=== PATIENT | female | born 1945 ===

== ENCOUNTER 2021-05-16 11:16 | Inpatient (IN) | payer MEDICARE, MEDICAID ==
[~2021-05-16] VITALS: Ht 160 cm; Wt 50.4 kg
[2021-05-16 12:13] LABS: Eosinophils # (auto) 0 10 ^3/uL (0-0.8); Monocytes # (auto) 0.3 10 ^3/uL (0-1.3)
[2021-05-16 12:15] LABS: Basophils # (auto) 0.2 10 ^3/uL (0-0.2); Basophils % (auto) 2.7 % (0.0-2.0); Eosinophils % (auto) 0.1 % (0.0-7.0); Hematocrit 55.6 % (36.0-46.0); Hemoglobin 18.3 g/dL (12.2-16.2); Lymphocytes # (auto) 0.4 10 ^3/uL (0.4-5.4); Lymphocytes % (auto) 6.9 % (10.0-50.0); Mean Corpuscular Hemoglobin 32.8 pg (28.0-32.0); Mean Corpuscular Hgb Conc. 32.9 g/dL (32.0-36.0); Mean Corpuscular Volume 99.5 fL (80.0-100.0); Monocytes % (auto) 5.1 % (0.0-12.0); Neutrophils # (auto) 5.1 10 ^3/uL (1.6-8.6); Neutrophils % (auto) 85.2 % (37.0-80.0); Nucleated Red Blood Cells % 0.3 %; Red Blood Cells 5.59 10^6/uL (4.0-5.20); Red Cell Distribution Width 15.8 % (11.8-14.3)
[2021-05-16 12:23] LABS: Albumin 3.1 g/dL (3.4-5.0); Calcium 9.9 mg/dL (8.5-10.1); Magnesium 3.2 mg/dL (1.6-2.6); Potassium 4.5 mmol/L (3.5-5.1)
[2021-05-16 12:29] LABS: BUN/Creatinine Ratio 28.4; Bilirubin, Total 1.8 mg/dL (0.2-1.0); Total Protein 6.8 g/dL (6.4-8.2)
[2021-05-16] MEDS ORDERED: VANCOMYCIN 1GM/250ML 250 ML IV ONE (12:30)
[2021-05-16] MEDS ORDERED: CEFEPIME 1 GM in SODIUM CHL 0.9% 50 ML IV ONE (12:30)
[2021-05-16] MEDS ORDERED: ASPirin 325 MG TAB PO ONE (12:45)
[2021-05-16 13:24] LABS: INR 1.3 (0.9-1.15); Partial Thromboplastin Time 27.7 sec (23.6-33.0)
[2021-05-16] MEDS ORDERED: NITROGLYCERIN 0.4 MG SL TAB SL PRN (13:45)
[2021-05-16] MEDS ORDERED: MORPHINE SULFATE INJECTION 2 MG/ML SYRG IV PRN ×2 (13:45→15:15)
[2021-05-16 14:10] LABS: Lactic Acid w/Reflex 5.7 mmol/L (0.4-2.0)
[2021-05-16] MEDS ORDERED: IOHEXOL 350 MG/ML 100ML IJ ONE (14:22)
[2021-05-16] MEDS ORDERED: IPRATROPIUM BROM 0.5 MG/2.5ML INH SOL NEB ONE (15:15)
[2021-05-16] MEDS ORDERED: FAMOTIDINE (10MG/ML) 2ML VL IV ONE (15:15)
[2021-05-16] MEDS ORDERED: LORazepam 0.5 MG TAB PO PRN (15:15)
[2021-05-16] MEDS ORDERED: ONDANSETRON HCL 4 MG/2 ML VIAL IV PRN (15:15)
[2021-05-16] MEDS ORDERED: HEPARIN SODIUM (PORCINE) 5000 UNITS/ML 1ML VIAL IV ONE (16:15)
[2021-05-16] MEDS ORDERED: VANCOMYCIN PER PHARMACY 0 MG IV SCH (16:15)
[2021-05-16] MEDS: HEPARIN DRIP/D5W 100UNITS/ML 250 ML IV SCH (16:15)
[2021-05-16] MEDS ORDERED: BUMETANIDE 2.5mg/10ml (0.25 mg/ml) INJ IV ONE (16:15)
[2021-05-16] MEDS ORDERED: ALBUMIN 25% 100 ML IV ONE (16:15)
[2021-05-16] MEDS ORDERED: METOPROLOL SUCCINATE XL 50 MG TAB PO ONE (16:30)
[2021-05-16] MEDS ORDERED: ATORVASTATIN 20 MG TAB PO ONE (16:30)
[2021-05-16] MEDS: ACCU-CHEK COMFORT CURVE STRIP VI SCH ×2 (17:00→22:22)
[2021-05-16] MEDS: InsuLIN REG 1unit/0.01ml Soln (100units/ml) SC SCH ×2 (17:00→22:00)
[2021-05-16 17:18] LABS: Magnesium 2.7 mg/dL (1.6-2.6); Phosphorus 3.5 mg/dL (2.5-4.90)
[2021-05-16] MEDS ORDERED: BUMETANIDE 2.5mg/10ml (0.25 mg/ml) INJ IV SCH (18:00)
[2021-05-16] MEDS: IPRATROPIUM BROM 0.5 MG/2.5ML INH SOL NEB SCH ×2 (18:28→23:39)
[2021-05-16] MEDS: DOBUTamine 1000MCG/ML 250 ML IV SCH (18:51)
[2021-05-16] MEDS: FUROSEMIDE 20 MG/2 ML VIAL IV SCH (18:52)
[2021-05-16 19:12] LABS: Urine Bacteria NONE SEEN /hpf (None Seen); Urine Blood Negative /uL (Negative); Urine Hyaline Cast FEW /lpf (0 - 2); Urine WBC 2 /hpf (0 - 5)
[2021-05-16 19:28] LABS: Alcohol, Urine < 3.0 mg/dL (0-10); Amphetamine Screen, Urine NEGATIVE (NEGATIVE); Barbiturate Scree,Urine NEGATIVE (NEGATIVE); Benzodiazephine Screen, Urine NEGATIVE (NEGATIVE); Cannabinoid Screen, Urine NEGATIVE (NEGATIVE); Cocaine Screen, Urine NEGATIVE (NEGATIVE); Opiate Scree,Urine NEGATIVE (NEGATIVE); Phencyclidine Screen, Urine NEGATIVE (NEGATIVE)
[2021-05-16] MEDS: ACETYLCYSTEINE ORAL for CIN 20%(200MG/ML) 4ML PO SCH (22:00)
[2021-05-16] MEDS ORDERED: ISOSORBIDE MONONITRATE 20 MG TAB PO SCH (22:00)
[2021-05-16] MEDS: METOPROLOL TARTRATE 25 MG TAB PO SCH (22:22)
[2021-05-16] MEDS: SACUBITRIL-VALSARTAN 24mg/26mg TAB PO SCH (22:23)
[2021-05-16] MEDS: PIPERACILLIN-TAZOB 3.375GM 100 ML IV SCH (22:35)
[2021-05-17 00:45] LABS: Partial Thromboplastin Time > 139.0 sec (23.6-33.0)
[2021-05-17] MEDS: HEPARIN DRIP/D5W 100UNITS/ML 250 ML IV SCH ×2 (01:00→15:00)
[2021-05-17] MEDS: IPRATROPIUM BROM 0.5 MG/2.5ML INH SOL NEB SCH ×6 (03:14→22:00)
[2021-05-17 06:03] LABS: Basophils # (auto) 0 10 ^3/uL (0-0.2); Basophils % (auto) 0.2 % (0.0-2.0); Eosinophils # (auto) 0 10 ^3/uL (0-0.8); Eosinophils % (auto) 0.3 % (0.0-7.0); Hematocrit 41.5 % (36.0-46.0); Hemoglobin 13.9 g/dL (12.2-16.2); Lymphocytes # (auto) 0.6 10 ^3/uL (0.4-5.4); Lymphocytes % (auto) 12.3 % (10.0-50.0); Mean Corpuscular Hemoglobin 33.8 pg (28.0-32.0); Mean Corpuscular Hgb Conc. 33.6 g/dL (32.0-36.0); Mean Corpuscular Volume 100.7 fL (80.0-100.0); Monocytes # (auto) 0.4 10 ^3/uL (0-1.3); Monocytes % (auto) 8.7 % (0.0-12.0); Neutrophils # (auto) 3.8 10 ^3/uL (1.6-8.6); Neutrophils % (auto) 78.5 % (37.0-80.0); Nucleated Red Blood Cells % 0.1 %; Red Blood Cells 4.12 10^6/uL (4.0-5.20); Red Cell Distribution Width 15.9 % (11.8-14.3); White Blood Cell 4.9 10^3/uL (4.4-10.8)
[2021-05-17 06:24] LABS: INR 1.27 (0.9-1.15); Partial Thromboplastin Time 28.5 sec (23.6-33.0)
[2021-05-17 06:29] LABS: Calcium 9.1 mg/dL (8.5-10.1); Potassium 3.6 mmol/L (3.5-5.1)
[2021-05-17 06:33] LABS: Albumin 3.2 g/dL (3.4-5.0); BUN/Creatinine Ratio 28.6; Bilirubin, Total 1.3 mg/dL (0.2-1.0); Phosphorus 3.3 mg/dL (2.5-4.90); Total Protein 5.6 g/dL (6.4-8.2)
[2021-05-17] MEDS: PIPERACILLIN-TAZOB 3.375GM 100 ML IV SCH ×3 (06:55→19:12)
[2021-05-17] MEDS: FUROSEMIDE 20 MG/2 ML VIAL IV SCH ×2 (06:55→18:36)
[2021-05-17] MEDS: ACCU-CHEK COMFORT CURVE STRIP VI SCH ×4 (07:00→22:00)
[2021-05-17] MEDS: InsuLIN REG 1unit/0.01ml Soln (100units/ml) SC SCH ×4 (07:00→22:00)
[2021-05-17] MEDS: ALBUMIN 25% 100 ML IV SCH ×2 (08:11)
[2021-05-17] MEDS: ACETYLCYSTEINE ORAL for CIN 20%(200MG/ML) 4ML PO SCH ×2 (10:00→22:00)
[2021-05-17] MEDS: ASPirin 81 mg TAB PO SCH (10:00)
[2021-05-17] MEDS ORDERED: METOPROLOL SUCCINATE XL 50 MG TAB PO SCH (10:00)
[2021-05-17] MEDS ORDERED: ENOXAPARIN SOD 40 MG/0.4 ML SYRINGE SC SCH (10:00)
[2021-05-17] MEDS: FAMOTIDINE (10MG/ML) 2ML VL IV SCH (11:20)
[2021-05-17] MEDS: METOPROLOL TARTRATE 25 MG TAB PO SCH ×3 (11:20→18:47)
[2021-05-17] MEDS: SACUBITRIL-VALSARTAN 24mg/26mg TAB PO SCH ×2 (11:20→22:00)
[2021-05-17] MEDS: DOBUTamine 1000MCG/ML 250 ML IV SCH (11:21)
[2021-05-17] MEDS: DEXTROSE (50%) 50ML SYRG IV PRN (11:55)
[2021-05-17] MEDS: VANCOMYCIN 1GM/250ML 250 ML IV SCH (14:00)
[2021-05-17 14:41] VITALS: BP 126/69
[2021-05-17 17:36] VITALS: BP 143/70
[2021-05-17 19:55] LABS: INR 1.21 (0.9-1.15); Partial Thromboplastin Time 34.9 sec (23.6-33.0)
[2021-05-17 20:00] VITALS: BP 137/95
[2021-05-17] MEDS ORDERED: HEPARIN SODIUM (PORCINE) 5000 UNITS/ML 1ML VIAL IV ONE (21:30)
[2021-05-17 22:00] VITALS: BP 137/95
[2021-05-17] MEDS: ATORVASTATIN 20 MG TAB PO SCH (22:00)
[2021-05-18 02:02] LABS: INR 1.35 (0.9-1.15)
[2021-05-18] MEDS: IPRATROPIUM BROM 0.5 MG/2.5ML INH SOL NEB SCH ×5 (02:03→22:27)
[2021-05-18 02:09] LABS: Partial Thromboplastin Time > 139.0 sec (23.6-33.0)
[2021-05-18] MEDS: DOBUTamine 1000MCG/ML 250 ML IV SCH ×2 (04:15→22:53)
[2021-05-18 05:00] VITALS: BP 132/70
[2021-05-18] MEDS: PIPERACILLIN-TAZOB 3.375GM 100 ML IV SCH ×4 (05:17→18:26)
[2021-05-18] MEDS: FUROSEMIDE 20 MG/2 ML VIAL IV SCH ×2 (06:00→18:26)
[2021-05-18] MEDS: InsuLIN REG 1unit/0.01ml Soln (100units/ml) SC SCH ×4 (06:14→22:00)
[2021-05-18] MEDS: ACCU-CHEK COMFORT CURVE STRIP VI SCH ×4 (06:15→22:00)
[2021-05-18 09:00] VITALS: BP 120/87
[2021-05-18 09:45] LABS: Basophils # (auto) 0 10 ^3/uL (0-0.2); Basophils % (auto) 0.3 % (0.0-2.0); Eosinophils # (auto) 0 10 ^3/uL (0-0.8); Eosinophils % (auto) 0.1 % (0.0-7.0); Hematocrit 46.5 % (36.0-46.0); Hemoglobin 15.7 g/dL (12.2-16.2); Lymphocytes # (auto) 0.6 10 ^3/uL (0.4-5.4); Lymphocytes % (auto) 8.7 % (10.0-50.0); Mean Corpuscular Hemoglobin 33.1 pg (28.0-32.0); Mean Corpuscular Hgb Conc. 33.8 g/dL (32.0-36.0); Mean Corpuscular Volume 97.9 fL (80.0-100.0); Monocytes # (auto) 0.5 10 ^3/uL (0-1.3); Monocytes % (auto) 7.6 % (0.0-12.0); Neutrophils # (auto) 5.6 10 ^3/uL (1.6-8.6); Neutrophils % (auto) 83.3 % (37.0-80.0); Nucleated Red Blood Cells % 0.2 %; Red Blood Cells 4.76 10^6/uL (4.0-5.20); Red Cell Distribution Width 15.4 % (11.8-14.3); White Blood Cell 6.8 10^3/uL (4.4-10.8)
[2021-05-18] MEDS: SACUBITRIL-VALSARTAN 24mg/26mg TAB PO SCH ×2 (09:47→22:52)
[2021-05-18] MEDS: ASPirin 81 mg TAB PO SCH (09:47)
[2021-05-18] MEDS: FAMOTIDINE (10MG/ML) 2ML VL IV SCH (09:49)
[2021-05-18] MEDS: FLUCONAZOLE 200MG/100ML 100 ML IV SCH (11:00)
[2021-05-18 11:23] LABS: Potassium 3.3 mmol/L (3.5-5.1)
[2021-05-18 11:24] LABS: BUN/Creatinine Ratio 23.2; Calcium 9.7 mg/dL (8.5-10.1)
[2021-05-18 12:51] LABS: INR 1.19 (0.9-1.15); Partial Thromboplastin Time 37.9 sec (23.6-33.0)
[2021-05-18 13:00] VITALS: BP 156/106
[2021-05-18] MEDS: VANCOMYCIN 1GM/250ML 250 ML IV SCH (14:00)
[2021-05-18] MEDS: HEPARIN DRIP/D5W 100UNITS/ML 250 ML IV SCH ×2 (14:30→21:16)
[2021-05-18 16:16] VITALS: BP 150/78
[2021-05-18 20:49] LABS: INR 1.41 (0.9-1.15); Partial Thromboplastin Time 47.6 sec (23.6-33.0)
[2021-05-18 21:52] VITALS: BP 149/87
[2021-05-18] MEDS: ATORVASTATIN 20 MG TAB PO SCH (22:47)
[2021-05-18] MEDS: METOPROLOL TARTRATE 25 MG TAB PO SCH (22:49)
[2021-05-19] MEDS: PIPERACILLIN-TAZOB 3.375GM 100 ML IV SCH ×4 (00:25→18:00)
[2021-05-19] MEDS: IPRATROPIUM BROM 0.5 MG/2.5ML INH SOL NEB SCH ×6 (02:32→22:00)
[2021-05-19 04:54] VITALS: BP 140/71
[2021-05-19 05:58] LABS: Basophils # (auto) 0.1 10 ^3/uL (0-0.2); Basophils % (auto) 1.8 % (0.0-2.0); Eosinophils # (auto) 0 10 ^3/uL (0-0.8); Eosinophils % (auto) 0.1 % (0.0-7.0); Hemoglobin 14.2 g/dL (12.2-16.2); Lymphocytes # (auto) 0.4 10 ^3/uL (0.4-5.4); Lymphocytes % (auto) 8.3 % (10.0-50.0); Mean Corpuscular Hemoglobin 33.5 pg (28.0-32.0); Mean Corpuscular Hgb Conc. 33.8 g/dL (32.0-36.0); Monocytes # (auto) 0.4 10 ^3/uL (0-1.3); Monocytes % (auto) 6.7 % (0.0-12.0); Neutrophils # (auto) 4.4 10 ^3/uL (1.6-8.6); Neutrophils % (auto) 83.1 % (37.0-80.0); Nucleated Red Blood Cells % 0.1 %; Red Blood Cells 4.24 10^6/uL (4.0-5.20); Red Cell Distribution Width 15.1 % (11.8-14.3); White Blood Cell 5.2 10^3/uL (4.4-10.8)
[2021-05-19 06:20] LABS: BUN/Creatinine Ratio 26.2; Calcium 9.2 mg/dL (8.5-10.1)
[2021-05-19 06:35] LABS: Potassium 2.7 mmol/L (3.5-5.1)
[2021-05-19] MEDS: InsuLIN REG 1unit/0.01ml Soln (100units/ml) SC SCH ×4 (06:54→22:40)
[2021-05-19] MEDS: ACCU-CHEK COMFORT CURVE STRIP VI SCH ×4 (06:54→22:00)
[2021-05-19] MEDS: FUROSEMIDE 20 MG/2 ML VIAL IV SCH ×2 (06:54→17:27)
[2021-05-19] MEDS ORDERED: POTASSIUM CHL 20 Meq TABLET PO ONE (07:00)
[2021-05-19 09:12] VITALS: BP 125/70
[2021-05-19] MEDS: ASPirin 81 mg TAB PO SCH (10:08)
[2021-05-19] MEDS: SACUBITRIL-VALSARTAN 24mg/26mg TAB PO SCH ×2 (10:08→22:39)
[2021-05-19] MEDS: FLUCONAZOLE 200MG/100ML 100 ML IV SCH ×2 (10:08→11:00)
[2021-05-19] MEDS: FAMOTIDINE (10MG/ML) 2ML VL IV SCH (10:08)
[2021-05-19] MEDS: METOPROLOL TARTRATE 25 MG TAB PO SCH ×2 (10:09→22:00)
[2021-05-19] MEDS: POTASSIUM CHL 10MEQ/50ML 50 ML IV SCH ×4 (10:45→13:45)
[2021-05-19 11:31] LABS: INR 1.24 (0.9-1.15)
[2021-05-19 11:51] LABS: Partial Thromboplastin Time 112.7 sec (23.6-33.0)
[2021-05-19] MEDS: Ensure Enlive Strawberry 8oz Bottle PO SCH ×2 (12:00→17:29)
[2021-05-19 13:00] VITALS: BP 123/62
[2021-05-19] MEDS: DOBUTamine 1000MCG/ML 250 ML IV SCH (15:15)
[2021-05-19 17:00] VITALS: BP 112/68
[2021-05-19] MEDS: VANCOMYCIN 1GM/250ML 250 ML IV SCH (20:00)
[2021-05-19 20:04] LABS: INR 1.28 (0.9-1.15); Partial Thromboplastin Time 52.8 sec (23.6-33.0)
[2021-05-19 22:00] VITALS: BP 126/74
[2021-05-19] MEDS: ATORVASTATIN 20 MG TAB PO SCH (22:40)
[2021-05-20] MEDS: HEPARIN DRIP/D5W 100UNITS/ML 250 ML IV SCH (00:03)
[2021-05-20] MEDS: PIPERACILLIN-TAZOB 3.375GM 100 ML IV SCH ×2 (00:12→07:01)
[2021-05-20] MEDS: IPRATROPIUM BROM 0.5 MG/2.5ML INH SOL NEB SCH ×6 (02:00→22:02)
[2021-05-20 03:59] LABS: INR 1.24 (0.9-1.15)
[2021-05-20 04:10] LABS: Partial Thromboplastin Time 74.9 sec (23.6-33.0)
[2021-05-20 05:00] VITALS: BP 157/68
[2021-05-20] MEDS: ACCU-CHEK COMFORT CURVE STRIP VI SCH ×4 (06:58→21:13)
[2021-05-20] MEDS: FUROSEMIDE 20 MG/2 ML VIAL IV SCH ×2 (07:00→18:00)
[2021-05-20] MEDS: InsuLIN REG 1unit/0.01ml Soln (100units/ml) SC SCH ×4 (07:00→21:18)
[2021-05-20] MEDS: Ensure Enlive Strawberry 8oz Bottle PO SCH (08:00)
[2021-05-20 09:00] VITALS: BP 148/81
[2021-05-20] MEDS: METOPROLOL TARTRATE 25 MG TAB PO SCH ×2 (10:00→21:12)
[2021-05-20] MEDS: ASPirin 81 mg TAB PO SCH (10:00)
[2021-05-20] MEDS: SACUBITRIL-VALSARTAN 24mg/26mg TAB PO SCH ×2 (10:00→21:11)
[2021-05-20] MEDS: FAMOTIDINE (10MG/ML) 2ML VL IV SCH (10:00)
[2021-05-20] MEDS: FLUCONAZOLE 200MG/100ML 100 ML IV SCH ×2 (10:00→11:00)
[2021-05-20 10:40] LABS: Basophils # (auto) 0 10 ^3/uL (0-0.2); Basophils % (auto) 0.2 % (0.0-2.0); Eosinophils # (auto) 0 10 ^3/uL (0-0.8); Eosinophils % (auto) 0.1 % (0.0-7.0); Hematocrit 41.3 % (36.0-46.0); Hemoglobin 14.1 g/dL (12.2-16.2); Lymphocytes # (auto) 0.4 10 ^3/uL (0.4-5.4); Lymphocytes % (auto) 7.3 % (10.0-50.0); Mean Corpuscular Hemoglobin 33.7 pg (28.0-32.0); Mean Corpuscular Hgb Conc. 34.2 g/dL (32.0-36.0); Mean Corpuscular Volume 98.6 fL (80.0-100.0); Monocytes # (auto) 0.3 10 ^3/uL (0-1.3); Monocytes % (auto) 6.6 % (0.0-12.0); Neutrophils # (auto) 4.5 10 ^3/uL (1.6-8.6); Neutrophils % (auto) 85.8 % (37.0-80.0); Nucleated Red Blood Cells % 0.1 %; Red Blood Cells 4.19 10^6/uL (4.0-5.20); Red Cell Distribution Width 15.2 % (11.8-14.3); White Blood Cell 5.3 10^3/uL (4.4-10.8)
[2021-05-20] MEDS: DOBUTamine 1000MCG/ML 250 ML IV SCH (10:45)
[2021-05-20 10:48] LABS: Albumin 2.9 g/dL (3.4-5.0); BUN/Creatinine Ratio 22.1; Bilirubin, Total 2.3 mg/dL (0.2-1.0); Calcium 8.8 mg/dL (8.5-10.1); Total Protein 5.6 g/dL (6.4-8.2)
[2021-05-20] MEDS ORDERED: VANCOMYCIN 1GM/250ML 250 ML IV SCH (11:00)
[2021-05-20] MEDS ORDERED: levoFLOXacin 500MG 100 ML IV ONE (11:30)
[2021-05-20 11:32] LABS: Potassium 2.9 mmol/L (3.5-5.1)
[2021-05-20 12:45] LABS: INR 1.19 (0.9-1.15); Partial Thromboplastin Time 31.5 sec (23.6-33.0)
[2021-05-20 13:00] VITALS: BP 132/80
[2021-05-20] MEDS ORDERED: PIPERACILLIN-TAZOB 3.375GM 100 ML IV SCH (14:00)
[2021-05-20] MEDS ORDERED: POTASSIUM EFFERVESENT TAB 25 MEQ PO ONE (14:45)
[2021-05-20 17:00] VITALS: BP 128/72
[2021-05-20] MEDS: POTASSIUM CHL 20 Meq TABLET PO SCH (18:00)
[2021-05-20] MEDS: Glucerna Carbsteady SHAKE Vanilla 8oz PO SCH (18:00)
[2021-05-20] MEDS ORDERED: Ensure Enlive Strawberry 8oz Bottle PO SCH (18:00)
[2021-05-20 19:38] LABS: INR 1.19 (0.9-1.15)
[2021-05-20] MEDS: ATORVASTATIN 20 MG TAB PO SCH (21:12)
[2021-05-20] MEDS ORDERED: HEPARIN SODIUM (PORCINE) 5000 UNITS/ML 1ML VIAL IV ONE (21:45)
[2021-05-20 22:00] VITALS: BP 173/83
[2021-05-21] MEDS: IPRATROPIUM BROM 0.5 MG/2.5ML INH SOL NEB SCH ×6 (02:05→21:43)
[2021-05-21 05:00] VITALS: BP 139/77
[2021-05-21] MEDS: FUROSEMIDE 20 MG/2 ML VIAL IV SCH ×2 (05:27→17:58)
[2021-05-21 05:49] LABS: INR 1.27 (0.9-1.15)
[2021-05-21] MEDS: InsuLIN REG 1unit/0.01ml Soln (100units/ml) SC SCH ×4 (06:06→21:36)
[2021-05-21] MEDS: ACCU-CHEK COMFORT CURVE STRIP VI SCH ×4 (06:06→21:36)
[2021-05-21 06:14] LABS: Partial Thromboplastin Time > 139.0 sec (23.6-33.0)
[2021-05-21] MEDS: Glucerna Carbsteady SHAKE Vanilla 8oz PO SCH ×3 (08:00→18:00)
[2021-05-21 09:00] VITALS: BP 151/70
[2021-05-21 09:04] LABS: Basophils # (auto) 0 10 ^3/uL (0-0.2); Eosinophils # (auto) 0 10 ^3/uL (0-0.8); Lymphocytes # (auto) 0.4 10 ^3/uL (0.4-5.4); Nucleated Red Blood Cells % 0.1 %; Red Cell Distribution Width 15.4 % (11.8-14.3)
[2021-05-21 09:07] LABS: Basophils % (auto) 0.1 % (0.0-2.0); Eosinophils % (auto) 0.4 % (0.0-7.0); Hemoglobin 14.4 g/dL (12.2-16.2); Lymphocytes % (auto) 8.7 % (10.0-50.0); Mean Corpuscular Hemoglobin 35.8 pg (28.0-32.0); Mean Corpuscular Hgb Conc. 35.1 g/dL (32.0-36.0); Mean Corpuscular Volume 101.9 fL (80.0-100.0); Monocytes # (auto) 0.5 10 ^3/uL (0-1.3); Monocytes % (auto) 8.9 % (0.0-12.0); Neutrophils # (auto) 4.2 10 ^3/uL (1.6-8.6); Neutrophils % (auto) 81.9 % (37.0-80.0); Red Blood Cells 4.02 10^6/uL (4.0-5.20); White Blood Cell 5.2 10^3/uL (4.4-10.8)
[2021-05-21 09:23] LABS: Albumin 2.7 g/dL (3.4-5.0); Calcium 8.8 mg/dL (8.5-10.1); Potassium 3.6 mmol/L (3.5-5.1)
[2021-05-21 09:27] LABS: BUN/Creatinine Ratio 21.9; Bilirubin, Total 1.8 mg/dL (0.2-1.0); Total Protein 5.6 g/dL (6.4-8.2)
[2021-05-21] MEDS ORDERED: levoFLOXacin 500MG 100 ML IV SCH (10:00)
[2021-05-21] MEDS: POTASSIUM CHL 20 Meq TABLET PO SCH (10:00)
[2021-05-21] MEDS: METOPROLOL TARTRATE 25 MG TAB PO SCH ×2 (10:00→21:35)
[2021-05-21] MEDS: SACUBITRIL-VALSARTAN 24mg/26mg TAB PO SCH ×2 (10:00→21:34)
[2021-05-21] MEDS: ASPirin 81 mg TAB PO SCH (10:00)
[2021-05-21] MEDS: FLUCONAZOLE 200MG/100ML 100 ML IV SCH ×2 (10:00→12:00)
[2021-05-21] MEDS: levoFLOXacin 250MG 50 ML IV SCH (10:00)
[2021-05-21 10:30] LABS: INR 1.18 (0.9-1.15)
[2021-05-21] MEDS: DOBUTamine 1000MCG/ML 250 ML IV SCH (10:45)
[2021-05-21 16:05] LABS: INR 1.17 (0.9-1.15); Partial Thromboplastin Time 30.2 sec (23.6-33.0)
[2021-05-21] MEDS ORDERED: HEPARIN DRIP/D5W 100UNITS/ML 250 ML IV SCH (16:45)
[2021-05-21] MEDS ORDERED: HEPARIN SODIUM (PORCINE) 5000 UNITS/ML 1ML VIAL IV ONE (16:45)
[2021-05-21 17:24] VITALS: BP 144/82
[2021-05-21] MEDS: ATORVASTATIN 20 MG TAB PO SCH (21:34)
[2021-05-21 23:25] LABS: INR 1.23 (0.9-1.15)
[2021-05-21 23:32] LABS: Partial Thromboplastin Time 91.3 sec (23.6-33.0)
[2021-05-22] VITALS (10 sets, daily range): BP systolic 95–147; BP diastolic 56–67
[2021-05-22] MEDS: IPRATROPIUM BROM 0.5 MG/2.5ML INH SOL NEB SCH ×6 (02:00→22:00)
[2021-05-22] MEDS: ACCU-CHEK COMFORT CURVE STRIP VI SCH ×4 (06:51→22:15)
[2021-05-22] MEDS: InsuLIN REG 1unit/0.01ml Soln (100units/ml) SC SCH ×4 (06:51→22:00)
[2021-05-22] MEDS: FUROSEMIDE 20 MG/2 ML VIAL IV SCH ×2 (06:54→18:00)
[2021-05-22 06:57] LABS: Basophils # (auto) 0 10 ^3/uL (0-0.2); Basophils % (auto) 0.2 % (0.0-2.0); Eosinophils # (auto) 0 10 ^3/uL (0-0.8); Eosinophils % (auto) 0.2 % (0.0-7.0); Hemoglobin 13.5 g/dL (12.2-16.2); Lymphocytes # (auto) 0.5 10 ^3/uL (0.4-5.4); Lymphocytes % (auto) 9.2 % (10.0-50.0); Mean Corpuscular Hemoglobin 33.3 pg (28.0-32.0); Mean Corpuscular Hgb Conc. 33.7 g/dL (32.0-36.0); Mean Corpuscular Volume 98.9 fL (80.0-100.0); Monocytes # (auto) 0.4 10 ^3/uL (0-1.3); Monocytes % (auto) 7.5 % (0.0-12.0); Neutrophils # (auto) 4.4 10 ^3/uL (1.6-8.6); Neutrophils % (auto) 82.9 % (37.0-80.0); Red Blood Cells 4.05 10^6/uL (4.0-5.20); Red Cell Distribution Width 15.2 % (11.8-14.3); White Blood Cell 5.3 10^3/uL (4.4-10.8)
[2021-05-22 07:11] LABS: Calcium 8.6 mg/dL (8.5-10.1); Potassium 3.2 mmol/L (3.5-5.1)
[2021-05-22 07:14] LABS: BUN/Creatinine Ratio 29.2
[2021-05-22 07:18] LABS: INR 1.19 (0.9-1.15); Partial Thromboplastin Time 42.9 sec (23.6-33.0)
[2021-05-22] MEDS: Glucerna Carbsteady SHAKE Vanilla 8oz PO SCH ×3 (08:00→18:00)
[2021-05-22] MEDS ORDERED: SODIUM CHL 0.9% 0 ML ONE (08:11)
[2021-05-22] MEDS ORDERED: ANGIOMAX 250 MG VIAL IV ONE (08:11)
[2021-05-22] MEDS ORDERED: MIDAZOLAM HCL 2MG/2ML 2ml VIAL (1mg/ml) ONE (08:11)
[2021-05-22] MEDS ORDERED: LIDOCAINE 2%HCL (LOCAL ANESTH.) INJ 20ML MDV ONE (08:11)
[2021-05-22] MEDS ORDERED: fentaNYL CITRATE 100 MCG/2 ML VL ONE (08:11)
[2021-05-22] MEDS ORDERED: IODIXANOL 320MG/ML 100ML BTL IV ONE (08:48)
[2021-05-22] MEDS: SACUBITRIL-VALSARTAN 24mg/26mg TAB PO SCH ×2 (10:00→22:11)
[2021-05-22] MEDS: METOPROLOL TARTRATE 25 MG TAB PO SCH ×2 (10:00→22:13)
[2021-05-22] MEDS: ASPirin 81 mg TAB PO SCH (10:00)
[2021-05-22] MEDS: levoFLOXacin 250MG 50 ML IV SCH (10:00)
[2021-05-22] MEDS: FLUCONAZOLE 200MG/100ML 100 ML IV SCH ×2 (10:00→11:00)
[2021-05-22] MEDS: POTASSIUM CHL 20 Meq TABLET PO SCH (10:00)
[2021-05-22] MEDS: DOBUTamine 1000MCG/ML 250 ML IV SCH (11:00)
[2021-05-22] MEDS: DEXTROSE (50%) 50ML SYRG IV PRN (11:40)
[2021-05-22] MEDS: SODIUM CHLOR 0.9% PF (SALINE LOCK) 10ML VIAL/SYR IV SCH ×2 (14:00→22:16)
[2021-05-22 15:57] LABS: INR 1.11 (0.9-1.15); Partial Thromboplastin Time 31.9 sec (23.6-33.0)
[2021-05-22] MEDS ORDERED: HEPARIN SODIUM (PORCINE) 5000 UNITS/ML 1ML VIAL IV ONE (16:45)
[2021-05-22] MEDS ORDERED: HEPARIN DRIP/D5W 100UNITS/ML 250 ML IV SCH (21:00)
[2021-05-22 21:31] LABS: INR 1.21 (0.9-1.15); Partial Thromboplastin Time 29.3 sec (23.6-33.0)
[2021-05-22] MEDS: ATORVASTATIN 20 MG TAB PO SCH (22:12)
[2021-05-23] MEDS: IPRATROPIUM BROM 0.5 MG/2.5ML INH SOL NEB SCH ×6 (02:00→21:53)
[2021-05-23 05:00] VITALS: BP 117/61
[2021-05-23] MEDS: SODIUM CHLOR 0.9% PF (SALINE LOCK) 10ML VIAL/SYR IV SCH ×3 (06:07→22:03)
[2021-05-23] MEDS: FUROSEMIDE 20 MG/2 ML VIAL IV SCH ×2 (06:08→18:00)
[2021-05-23] MEDS: InsuLIN REG 1unit/0.01ml Soln (100units/ml) SC SCH ×4 (06:40→22:00)
[2021-05-23] MEDS: ACCU-CHEK COMFORT CURVE STRIP VI SCH ×4 (06:41→22:04)
[2021-05-23 07:18] LABS: Basophils # (auto) 0 10 ^3/uL (0-0.2); Eosinophils # (auto) 0 10 ^3/uL (0-0.8); Lymphocytes # (auto) 0.5 10 ^3/uL (0.4-5.4); Monocytes # (auto) 0.4 10 ^3/uL (0-1.3)
[2021-05-23 07:20] LABS: INR 1.11 (0.9-1.15); Partial Thromboplastin Time 29.6 sec (23.6-33.0)
[2021-05-23 07:21] LABS: Basophils % (auto) 0.2 % (0.0-2.0); Eosinophils % (auto) 0.5 % (0.0-7.0); Hematocrit 41.1 % (36.0-46.0); Hemoglobin 14.2 g/dL (12.2-16.2); Lymphocytes % (auto) 8.8 % (10.0-50.0); Mean Corpuscular Hgb Conc. 34.6 g/dL (32.0-36.0); Mean Corpuscular Volume 101.4 fL (80.0-100.0); Monocytes % (auto) 7.5 % (0.0-12.0); Neutrophils # (auto) 4.8 10 ^3/uL (1.6-8.6); Nucleated Red Blood Cells % 0.2 %; Red Blood Cells 4.06 10^6/uL (4.0-5.20); Red Cell Distribution Width 15.6 % (11.8-14.3); White Blood Cell 5.8 10^3/uL (4.4-10.8)
[2021-05-23] MEDS: Glucerna Carbsteady SHAKE Vanilla 8oz PO SCH ×3 (08:00→18:00)
[2021-05-23 09:00] VITALS: BP 132/66
[2021-05-23] MEDS ORDERED: HEPARIN SODIUM (PORCINE) 5000 UNITS/ML 1ML VIAL IV ONE (09:00)
[2021-05-23] MEDS: ASPirin 81 mg TAB PO SCH (10:00)
[2021-05-23] MEDS: METOPROLOL TARTRATE 25 MG TAB PO SCH ×2 (10:00→21:59)
[2021-05-23] MEDS: FLUCONAZOLE 200MG/100ML 100 ML IV SCH ×2 (10:00→11:00)
[2021-05-23] MEDS: SACUBITRIL-VALSARTAN 24mg/26mg TAB PO SCH ×2 (10:00→21:57)
[2021-05-23] MEDS: POTASSIUM CHL 20 Meq TABLET PO SCH (10:00)
[2021-05-23] MEDS: levoFLOXacin 250MG 50 ML IV SCH (10:00)
[2021-05-23] MEDS: LINEZOLID 600MG TABLET PO SCH ×2 (10:59→21:58)
[2021-05-23 13:00] VITALS: BP 124/59
[2021-05-23 17:00] VITALS: BP 156/93
[2021-05-23] MEDS: ATORVASTATIN 20 MG TAB PO SCH (21:58)
[2021-05-23 22:00] VITALS: BP 145/60
[2021-05-24] MEDS: IPRATROPIUM BROM 0.5 MG/2.5ML INH SOL NEB SCH ×5 (02:35→18:49)
[2021-05-24 05:00] VITALS: BP 131/70
[2021-05-24] MEDS: FUROSEMIDE 20 MG/2 ML VIAL IV SCH ×2 (06:16→18:00)
[2021-05-24] MEDS: SODIUM CHLOR 0.9% PF (SALINE LOCK) 10ML VIAL/SYR IV SCH ×3 (06:18→21:43)
[2021-05-24] MEDS: InsuLIN REG 1unit/0.01ml Soln (100units/ml) SC SCH ×4 (06:38→21:50)
[2021-05-24] MEDS: ACCU-CHEK COMFORT CURVE STRIP VI SCH ×4 (06:39→21:50)
[2021-05-24 08:00] VITALS: BP 147/66
[2021-05-24] MEDS: Glucerna Carbsteady SHAKE Vanilla 8oz PO SCH ×3 (08:00→18:19)
[2021-05-24] MEDS: FLUCONAZOLE 200MG/100ML 100 ML IV SCH ×2 (10:30→11:00)
[2021-05-24] MEDS: levoFLOXacin 250MG 50 ML IV SCH (10:31)
[2021-05-24] MEDS: SACUBITRIL-VALSARTAN 24mg/26mg TAB PO SCH ×2 (10:32→21:43)
[2021-05-24] MEDS: ASPirin 81 mg TAB PO SCH (10:32)
[2021-05-24] MEDS: POTASSIUM CHL 20 Meq TABLET PO SCH (10:32)
[2021-05-24] MEDS: METOPROLOL TARTRATE 25 MG TAB PO SCH ×2 (10:33→21:40)
[2021-05-24 12:00] VITALS: BP 149/69
[2021-05-24] MEDS: LINEZOLID 600MG TABLET PO SCH ×2 (14:41→21:43)
[2021-05-24] MEDS: DAPAGLIFLOZIN 5 MG TAB PO SCH (14:44)
[2021-05-24 17:00] VITALS: BP 123/59
[2021-05-24 20:00] VITALS: BP 154/81
[2021-05-24] MEDS: ATORVASTATIN 20 MG TAB PO SCH (21:40)
[2021-05-24] MEDS ORDERED: IPRATROPIUM BROM 0.5 MG/2.5ML INH SOL NEB PRN (22:00)
[2021-05-25] MEDS: SODIUM CHLOR 0.9% PF (SALINE LOCK) 10ML VIAL/SYR IV SCH ×3 (05:10→21:38)
[2021-05-25] MEDS: FUROSEMIDE 20 MG/2 ML VIAL IV SCH ×2 (05:10→09:36)
[2021-05-25] MEDS: InsuLIN REG 1unit/0.01ml Soln (100units/ml) SC SCH ×4 (05:35→22:00)
[2021-05-25] MEDS: ACCU-CHEK COMFORT CURVE STRIP VI SCH ×4 (05:35→21:42)
[2021-05-25 09:00] VITALS: BP 145/90
[2021-05-25] MEDS: Glucerna Carbsteady SHAKE Vanilla 8oz PO SCH ×3 (09:34→18:07)
[2021-05-25] MEDS: DAPAGLIFLOZIN 5 MG TAB PO SCH (09:34)
[2021-05-25] MEDS: DOCUSATE SOD 100 MG CAP PO PRN (09:35)
[2021-05-25] MEDS: SACUBITRIL-VALSARTAN 24mg/26mg TAB PO SCH ×2 (09:35→21:40)
[2021-05-25] MEDS: POTASSIUM CHL 20 Meq TABLET PO SCH (09:35)
[2021-05-25] MEDS: LINEZOLID 600MG TABLET PO SCH ×2 (09:35→21:41)
[2021-05-25] MEDS: ASPirin 81 mg TAB PO SCH (09:36)
[2021-05-25] MEDS: METOPROLOL TARTRATE 25 MG TAB PO SCH ×2 (09:37→22:07)
[2021-05-25] MEDS: levoFLOXacin 250MG 50 ML IV SCH (09:38)
[2021-05-25] MEDS: FLUCONAZOLE 200MG/100ML 100 ML IV SCH ×2 (10:37→11:00)
[2021-05-25 13:00] VITALS: BP 110/65
[2021-05-25 17:29] VITALS: BP 118/72
[2021-05-25] MEDS: ATORVASTATIN 20 MG TAB PO SCH (21:40)
[2021-05-25 21:48] VITALS: BP 131/66
[2021-05-26 05:29] VITALS: BP 134/73
[2021-05-26] MEDS: FUROSEMIDE 20 MG/2 ML VIAL IV SCH ×2 (05:34→18:25)
[2021-05-26] MEDS: InsuLIN REG 1unit/0.01ml Soln (100units/ml) SC SCH ×4 (05:34→21:30)
[2021-05-26] MEDS: SODIUM CHLOR 0.9% PF (SALINE LOCK) 10ML VIAL/SYR IV SCH ×3 (05:34→21:28)
[2021-05-26] MEDS: ACCU-CHEK COMFORT CURVE STRIP VI SCH ×4 (05:35→21:30)
[2021-05-26] MEDS: Glucerna Carbsteady SHAKE Vanilla 8oz PO SCH ×3 (08:00→18:24)
[2021-05-26 09:00] VITALS: BP 129/72
[2021-05-26] MEDS: FLUCONAZOLE 200MG/100ML 100 ML IV SCH ×2 (11:59→12:01)
[2021-05-26] MEDS: levoFLOXacin 250MG 50 ML IV SCH (12:00)
[2021-05-26] MEDS: DAPAGLIFLOZIN 5 MG TAB PO SCH (12:02)
[2021-05-26] MEDS: DOCUSATE SOD 100 MG CAP PO PRN (12:02)
[2021-05-26] MEDS: SACUBITRIL-VALSARTAN 24mg/26mg TAB PO SCH ×2 (12:02→21:28)
[2021-05-26] MEDS: LINEZOLID 600MG TABLET PO SCH ×2 (12:02→21:30)
[2021-05-26] MEDS: ASPirin 81 mg TAB PO SCH (12:02)
[2021-05-26] MEDS: POTASSIUM CHL 20 Meq TABLET PO SCH (12:03)
[2021-05-26] MEDS: METOPROLOL TARTRATE 25 MG TAB PO SCH ×2 (12:05→21:28)
[2021-05-26 13:00] VITALS: BP 130/67
[2021-05-26 17:00] VITALS: BP 111/73
[2021-05-26] MEDS: ATORVASTATIN 20 MG TAB PO SCH (21:29)
[2021-05-26 22:00] VITALS: BP 131/62
[2021-05-27 05:00] VITALS: BP 134/88
[2021-05-27] MEDS: InsuLIN REG 1unit/0.01ml Soln (100units/ml) SC SCH ×4 (07:00→21:36)
[2021-05-27] MEDS: ACCU-CHEK COMFORT CURVE STRIP VI SCH ×4 (07:00→21:35)
[2021-05-27] MEDS: Glucerna Carbsteady SHAKE Vanilla 8oz PO SCH ×3 (08:00→18:10)
[2021-05-27 09:00] VITALS: BP 134/54
[2021-05-27] MEDS: FUROSEMIDE 20 MG/2 ML VIAL IV SCH ×2 (10:58→17:54)
[2021-05-27] MEDS: SACUBITRIL-VALSARTAN 24mg/26mg TAB PO SCH ×2 (10:59→22:04)
[2021-05-27] MEDS: LINEZOLID 600MG TABLET PO SCH ×2 (10:59→21:55)
[2021-05-27] MEDS: ASPirin 81 mg TAB PO SCH (10:59)
[2021-05-27] MEDS: METOPROLOL TARTRATE 25 MG TAB PO SCH ×2 (10:59→22:05)
[2021-05-27] MEDS: FLUCONAZOLE 200MG/100ML 100 ML IV SCH ×2 (11:00→12:00)
[2021-05-27] MEDS: DOCUSATE SOD 100 MG CAP PO PRN (11:00)
[2021-05-27] MEDS: levoFLOXacin 250MG 50 ML IV SCH (11:00)
[2021-05-27] MEDS: DAPAGLIFLOZIN 5 MG TAB PO SCH (11:00)
[2021-05-27] MEDS: POTASSIUM CHL 20 Meq TABLET PO SCH (11:00)
[2021-05-27] MEDS: SODIUM CHLOR 0.9% PF (SALINE LOCK) 10ML VIAL/SYR IV SCH ×2 (14:00→21:54)
[2021-05-27 17:00] VITALS: BP 125/75
[2021-05-27] MEDS: ATORVASTATIN 20 MG TAB PO SCH (21:54)
[2021-05-27 22:06] VITALS: BP 118/86
[2021-05-28 05:10] VITALS: BP 140/64
[2021-05-28] MEDS: InsuLIN REG 1unit/0.01ml Soln (100units/ml) SC SCH ×3 (06:38→18:03)
[2021-05-28] MEDS: ACCU-CHEK COMFORT CURVE STRIP VI SCH ×3 (06:38→18:03)
[2021-05-28] MEDS: SODIUM CHLOR 0.9% PF (SALINE LOCK) 10ML VIAL/SYR IV SCH ×2 (06:50→14:58)
[2021-05-28] MEDS: FUROSEMIDE 20 MG/2 ML VIAL IV SCH ×2 (06:52→18:00)
[2021-05-28 08:54] VITALS: BP 117/52
[2021-05-28] MEDS: levoFLOXacin 250MG 50 ML IV SCH (09:07)
[2021-05-28] MEDS: FLUCONAZOLE 200MG/100ML 100 ML IV SCH ×2 (09:07→11:07)
[2021-05-28] MEDS: SACUBITRIL-VALSARTAN 24mg/26mg TAB PO SCH (09:08)
[2021-05-28] MEDS: POTASSIUM CHL 20 Meq TABLET PO SCH (09:08)
[2021-05-28] MEDS: ASPirin 81 mg TAB PO SCH (09:10)
[2021-05-28] MEDS: METOPROLOL TARTRATE 25 MG TAB PO SCH (09:10)
[2021-05-28] MEDS: DAPAGLIFLOZIN 5 MG TAB PO SCH (11:35)
[2021-05-28 11:36] LABS: Albumin 2.2 g/dL (3.4-5.0); BUN/Creatinine Ratio 31.4; Calcium 8.4 mg/dL (8.5-10.1); Potassium 3.6 mmol/L (3.5-5.1)
[2021-05-28 11:37] LABS: Hemoglobin 13.6 g/dL (12.2-16.2); Lymphocytes # (auto) 0.6 10 ^3/uL (0.4-5.4); Monocytes # (auto) 0.4 10 ^3/uL (0-1.3)
[2021-05-28 11:39] LABS: Bilirubin, Total 1.3 mg/dL (0.2-1.0)
[2021-05-28 11:43] LABS: Basophils # (auto) 0.1 10 ^3/uL (0-0.2); Eosinophils # (auto) 0.1 10 ^3/uL (0-0.8); Eosinophils % (auto) 1.2 % (0.0-7.0); Hematocrit 39.2 % (36.0-46.0); Lymphocytes % (auto) 10.5 % (10.0-50.0); Mean Corpuscular Hemoglobin 34.6 pg (28.0-32.0); Mean Corpuscular Hgb Conc. 34.7 g/dL (32.0-36.0); Mean Corpuscular Volume 99.6 fL (80.0-100.0); Monocytes % (auto) 6.9 % (0.0-12.0); Neutrophils # (auto) 4.6 10 ^3/uL (1.6-8.6); Neutrophils % (auto) 80.4 % (37.0-80.0); Nucleated Red Blood Cells % 0.1 %; Red Blood Cells 3.94 10^6/uL (4.0-5.20); Red Cell Distribution Width 14.9 % (11.8-14.3); White Blood Cell 5.7 10^3/uL (4.4-10.8)
[2021-05-28] MEDS: LINEZOLID 600MG TABLET PO SCH (11:44)
[2021-05-28] MEDS ORDERED: Ensure HIGH Protein Chocolate 8oz Bottle PO SCH (12:00)
[2021-05-28 12:33] VITALS: BP 141/59
[2021-05-28 15:34] VITALS: BP 141/59
[2021-05-28 17:00] VITALS: BP 139/74
== END 2021-05-28 18:40 | DRG 871 ==
LOC: ER 11:16 → EDBD 11:16 → OVERFLOW 13:36 → TELE-WESTW 05-17 14:50
PROVIDERS: ADMIT Hospitalist; ATTEND Family Medicine
PROC: 05HB33Z Insertion of Infusion Device into Right Basilic Vein, Percutaneous Approach (ICD-10-PCS; 2021-05-18)
PROC: B54MZZA Ultrasonography of Right Upper Extremity Veins, Guidance (ICD-10-PCS; 2021-05-18)
PROC: 0W993ZZ Drainage of Right Pleural Cavity, Percutaneous Approach (ICD-10-PCS; 2021-05-21)
PROC: B41GYZZ Fluoroscopy of Left Lower Extremity Arteries using Other Contrast (ICD-10-PCS; principal; 2021-05-22)
PROC: B41FYZZ Fluoroscopy of Right Lower Extremity Arteries using Other Contrast (ICD-10-PCS; 2021-05-22)
DX: A41.9 Sepsis, unspecified organism (principal); I50.43 Acute on chronic combined systolic (congestive) and diastolic (congestive) heart failure; I21.A1 Myocardial infarction type 2; I96 Gangrene, not elsewhere classified; I42.9 Cardiomyopathy, unspecified; L03.115 Cellulitis of right lower limb; L03.116 Cellulitis of left lower limb; L97.529 Non-pressure chronic ulcer of other part of left foot with unspecified severity; L97.519 Non-pressure chronic ulcer of other part of right foot with unspecified severity; S00.33XA Contusion of nose, initial encounter; B96.1 Klebsiella pneumoniae [K. pneumoniae] as the cause of diseases classified elsewhere; E78.5 Hyperlipidemia, unspecified; E87.6 Hypokalemia; F12.90 Cannabis use, unspecified, uncomplicated; F15.90 Other stimulant use, unspecified, uncomplicated; F17.210 Nicotine dependence, cigarettes, uncomplicated; I11.0 Hypertensive heart disease with heart failure; R73.03 Prediabetes; Z20.822 Contact with and (suspected) exposure to COVID-19; W18.39XA Other fall on same level, initial encounter; Y93.89 Activity, other specified; Y92.89 Other specified places as the place of occurrence of the external cause; Y99.8 Other external cause status; Z82.49 Family history of ischemic heart disease and other diseases of the circulatory system; Z86.73 Personal history of transient ischemic attack (TIA), and cerebral infarction without residual deficits; Z91.19 Patient's noncompliance with other medical treatment and regimen; Z71.6 Tobacco abuse counseling
CPT/HCPCS: 36415; 70450; 70486; 71045; 72125; 75635; 76604; 76942; 80048; 80053; 80061; 80202; 80307; 81001; 82962; 83036; 83605; 83735; 83880; 84100; 84443; 84484; 85025; 85379; 85610; 85730; 86141; 87040; 87070; 87077; 87086; 87186; 87205; 87426; 89051; 93005; 93306; 93970; 94003; 94640; 97163; 99152; 99291; G0378; J1450; J1815; J1956; J2250; J2405; J2543; J3490; P9047; Q9967